=== PATIENT | female | born 1980 | race African-American/Black ===

== ENCOUNTER 2016-12-07 11:27 | Emergency (ER) | payer OTHER ==
[~2016-12-07] VITALS: Ht 172.7 cm; Wt 65.0 kg
[2016-12-07 11:34] VITALS: BP 130/94; PULSE 90; RESP 18; TEMP 98.1; O2SAT 100
--- NOTE | 2016-12-07 12:00 | RADRPT ---
EXAM DATE/TIME: 12/07/2016 11:39 [facility] COMPARISON: No previous studies available for comparison. INDICATIONS : Chest pain MEDICAL HISTORY : None. SURGICAL HISTORY : None. ENCOUNTER: Initial ACUITY: 2 days PAIN SCORE: 5/10 LOCATION: Bilateral chest FINDINGS: A single view of the chest demonstrates the lungs to be symmetrically aerated without evidence of mas s, infiltrate or effusion. The cardiomediastinal contours are unremarkable. Osseous structures are intact. CONCLUSION: No acute disease. Oerstes Disla MD FACR on December 07, 2016 at 11:58 Board Certified Radiologist. This report was verified electronically.
[2016-12-07 12:10] LABS: AUTOMATED NEUTROPHIL # 2.8 TH/MM3 (1.8-7.7); BASOPHIL % 0.6 % (0.0-2.0); HEMATOCRIT 35.2 % (35.0-46.0); HEMO FLAGS DIFF FINAL; LYMPH % 30.6 % (9.0-44.0); LYMPHOCYTE # 1.4 TH/MM3 (1.0-4.8); MEAN CELL VOLUME 84.4 FL (80.0-100.0); MEAN CORPUSCULAR HEMOGLOBIN 29.8 PG (27.0-34.0); MEAN CORPUSCULAR HGB CONC 35.3 % (32.0-36.0); MONO % 6.7 % (0.0-8.0); NEUT % 61.1 % (16.0-70.0); PLATELET COUNT 203 TH/MM3 (150-450); RED BLOOD COUNT 4.18 MIL/MM3 (4.00-5.30); RED CELL DISTRIBUTION WIDTH 12.6 % (11.6-17.2); WHITE BLOOD COUNT 4.6 TH/MM3 (4.0-11.0)
--- NOTE | 2016-12-07 12:18 | PD ---
HPI Chief Complaint: Chest Pain Time Seen by Provider: 11:34 Travel History International Travel<30 days: No Contact w/Intl Traveler<30days: No Traveled to known affect area: No History of Present Illness HPI This is a 36-year-old female who presents to the emergency department with 1 week of chest discomfort feeling like fluttering in the center of her chest and pins and needles, constant, moderate severity, worse this morning. She denies any associated nausea, shortness of breath, or diaphoresis. She reports that over the weekend she went to [facility] for similar symptoms and had an evaluation which was unremarkable. She does take oral contraceptives. She has no history of hypertension, hyperlipidemia, diabetes or maternal or paternal history of heart disease. [facility] Past Medical History Diminished Hearing: No Tetanus Vaccination: < 5 Years Influenza Vaccination: Yes ?: Not Social History Alcohol Use: No Tobacco Use: No Substance Use: No Review of Systems Except as stated in HPI: all other systems reviewed are Neg Physical Exam Narrative GENERAL:Well appearing, no acute distress SKIN: Focused skin assessment warm and dry. HEAD: Atraumatic. Normocephalic. EYES: Pupils equal and round. No injection or drainage. ENT: Moist mucous membranes NECK: Trachea midline. CARDIOVASCULAR: Regular rate and rhythm. No murmur appreciated. RESPIRATORY: Clear to auscultation. Breath sounds equal bilaterally. GASTROINTESTINAL: Abdomen soft, non-tender, nondistended. MUSCULOSKELETAL: No obvious deformities. NEUROLOGICAL: Awake and alert. No obvious cranial nerve deficits. Moving all extremities. PSYCHIATRIC: Tearful, anxious appearing Data Data Last Documented VS Vital Signs Date Time Temp Pulse Resp B/P Pulse Ox O2 Delivery O2 Flow Rate FiO2 12/07/16 13:49 84 16 124/86 99 12/07/16 11:42 Room Air 12/07/16 11:34 98.1 Orders Complete Blood Count With Diff (12/07/16 11:43) Basic Metabolic Panel (Bmp) (12/07/16 11:43) Troponin I (12/07/16 11:43) D-Dimer (12/07/16 11:43) Chest, Single Ap (12/07/16 ) Ed Urine Pregnancytest Poc (12/07/16 11:43) Ct Pulmonary Angiogram (12/07/16 ) Iohexol 350 Inj (Omnipaque 350 Inj) (12/07/16 13:40) Labs Laboratory Tests Test 12/07/16 11:50 White Blood Count 4.6 TH/MM3 Red Blood Count 4.18 MIL/MM3 Hemoglobin 12.5 GM/DL Hematocrit 35.2 % Mean Corpuscular Volume 84.4 FL Mean Corpuscular Hemoglobin 29.8 PG Mean Corpuscular Hemoglobin 35.3 % Concent Red Cell Distribution Width 12.6 % Platelet Count 203 TH/MM3 Mean Platelet Volume 9.6 FL Neutrophils (%) (Auto) 61.1 % Lymphocytes (%) (Auto) 30.6 % Monocytes (%) (Auto) 6.7 % Eosinophils (%) (Auto) 1.0 % Basophils (%) (Auto) 0.6 % Neutrophils # (Auto) 2.8 TH/MM3 Lymphocytes # (Auto) 1.4 TH/MM3 Monocytes # (Auto) 0.3 TH/MM3 Eosinophils # (Auto) 0.0 TH/MM3 Basophils # (Auto) 0.0 TH/MM3 CBC Comment DIFF FINAL Differential Comment D-Dimer Quantitative (PE/DVT) 0.88 MG/L FEU Sodium Level 140 MEQ/L Potassium Level 3.4 MEQ/L Chloride Level 106 MEQ/L Carbon Dioxide Level 27.0 MEQ/L Anion Gap 7 MEQ/L Blood Urea Nitrogen 10 MG/DL Creatinine 1.00 MG/DL Estimat Glomerular Filtration 77 ML/MIN Rate Random Glucose 91 MG/DL Calcium Level 8.9 MG/DL Troponin I LESS THAN 0.02 NG/ML MDM Medical Decision Making Medical Screen Exam Complete: Yes Emergency Medical Condition: Yes Interpretation(s) EKG: Normal sinus rhythm with no ST changes no leukocytosis mild hypokalemia troponin normal d-dimer .88 Last 24 hours Impressions Chest X-Ray 12/07/16 0000 Signed Impressions: Service Date/Time: Wednesday, December 07, 2016 11:39 - CONCLUSION: No acute disease. Orestes Disla MD FACR CT Angiography 12/07/16 0000 Signed Impressions: Service Date/Time: Wednesday, December 07, 2016 13:22 - CONCLUSION: 1. No evidence of pulmonary embolism. 2. The lungs are clear. Milton Downing MD Differential Diagnosis Pericarditis, acute coronary syndrome, pulmonary embolism, panic attack Narrative Course This is a 36-year-old female who presents to the emergency department with chest discomfort going on intermittently for 1 week. She has no risk factors for coronary artery disease. Her EKG is reassuring. Patient is on OCPs. D- dimer was sent which was elevated. CT pulmonary and her Juma was obtained which was negative for PE. I think patient is safe for discharge and I suspect her symptoms are related to a panic attack. Diagnosis Primary Impression: Panic attack Patient Instructions: General Instructions Additional Instructions: If you develop severe chest pain, shortness of breath, sweating, lightheadedness , dizziness or difficulty breathing return to the emergency department immediately. Followup with your primary care physician in 2-3 days if your symptoms are not resolved. Med/Other Pt SpecificInfo: No Change to Meds Disposition: 01 DISCHARGE HOME Condition: Stable Ni Godinez MD Dec 07, 2016 12:18
[2016-12-07 12:40] LABS: ANION GAP 7 MEQ/L (5-15); BLOOD UREA NITROGEN 10 MG/DL (7-18); CHLORIDE 106 MEQ/L (98-107); GLOMERULAR FILTRATION RATE 77 ML/MIN (>89); POTASSIUM 3.4 MEQ/L (3.5-5.1); SODIUM (NA) 140 MEQ/L (136-145)
[2016-12-07] MEDS ORDERED: IOHEXOL 350 MG/ML 10 ML VIAL (for RAD DIAG) IV ONE (13:40)
--- NOTE | 2016-12-07 13:43 | RADRPT ---
EXAM DATE/TIME: 12/07/2016 13:22 [facility] COMPARISON: CHEST SINGLE AP, December 07, 2016, 11:39. INDICATIONS : Sudden onset chest pains. IV CONTRAST: 75 cc Omnipaque 350 (iohexol) IV RADIATION DOSE: 22.66 CTDIvol (mGy) MEDICAL HISTORY : None SURGICAL HISTORY : None. ENCOUNTER: Initial ACUITY: 1 day PAIN SCALE: 7/10 LOCATION: chest TECHNIQUE: Volumetric scanning of the chest was performed using a pulmonary embolism protocol MIP images were re constructed. Using automated exposure control and adjustment of the mA and/or kV according to patien t size, radiation dose was kept as low as reasonably achievable to obtain optimal diagnostic quality images. FINDINGS: PULMONARY ARTERIES: No filling defects are seen in the pulmonary arteries through the segmental level. LUNGS: There is no consolidation or pneumothorax . No concerning pulmonary nodule is visualized. PLEURAE: There is no pleural thickening or pleural effusion. MEDIASTINUM: There is good visualization of the great vessels of the middle mediastinum. No evidence of mediastin al or hilar adenopathy/mass. MUSCULOSKELETAL: Within normal limits for patient age. MISCELLANEOUS: The visualized upper abdominal organs demonstrate no acute abnormality. CONCLUSION: 1. No evidence of pulmonary embolism. 2. The lungs are clear. Milton Downing MD on December 07, 2016 at 13:39 Board Certified Radiologist. This report was verified electronically.
[2016-12-07 13:49] VITALS: BP 124/86; PULSE 84; RESP 16; O2SAT 99
[2016-12-07 14:21] VITALS: BP 124/71
--- NOTE | 2016-12-12 08:21 | EKG ---
Date Performed: 12/07/2016 Time Performed: 11:38:22 PTAGE: 36 years EKG: Sinus rhythm WITH MARKED SINUS ARRHYTHMIA BORDERLINE ECG NO PREVIOUS TRACING DOCTOR: Eyad Leos Interpretating Date/Time 12/12/2016 08:18:18
== END 2016-12-07 14:24 | disposition home or self-care (01) ==
LOC: NEPC 11:27
DX: F41.0 Panic disorder [episodic paroxysmal anxiety] (principal)
CPT/HCPCS: 71010; 71275; 80048; 84484; 84703; 85025; 85379; 93005; 99285; Q9967